=== PATIENT | female | born 1950 | race Caucasian/White ===

== ENCOUNTER → 2020-10-26 | Day surgery (SDC) | payer MEDICARE | END | disposition home or self-care (01) | LOC: MSO 10:41 | DX: H26.8 Other specified cataract (principal); I10 Essential (primary) hypertension; J45.909 Unspecified asthma, uncomplicated; K21.9 Gastro-esophageal reflux disease without esophagitis; F41.9 Anxiety disorder, unspecified; Z79.899 Other long term (current) drug therapy; Z79.51 Long term (current) use of inhaled steroids | CPT/HCPCS: 00142; J0171; J2250; J2370; V2632 ==